=== PATIENT | female | born 1945 | race Caucasian/White ===

== ENCOUNTER 2016-07-21 08:07 | Outpatient (CLI) | payer MEDICARE | END 2016-07-21 08:08 | disposition home or self-care (01) | DX: Z13.820 Encounter for screening for osteoporosis (principal); M85.852 Other specified disorders of bone density and structure, left thigh ==

== ENCOUNTER 2016-07-21 08:09 | Outpatient (CLI) | payer MEDICARE | END 2016-07-21 08:10 | disposition home or self-care (01) | DX: Z12.31 Encounter for screening mammogram for malignant neoplasm of breast (principal); R92.2 Inconclusive mammogram; Z80.3 Family history of malignant neoplasm of breast ==

== ENCOUNTER 2016-08-09 12:31 | Outpatient (CLI) | payer MEDICARE | END 2016-08-09 12:32 | disposition home or self-care (01) | DX: R92.2 Inconclusive mammogram (principal); N60.01 Solitary cyst of right breast | CPT/HCPCS: 76642; G0206 ==

== ENCOUNTER 2019-02-23 11:06 | Emergency (ER) | payer MEDICARE ==
--- NOTE | 2019-02-23 12:04 | ED Physician Documentation ---
History of Present Illness - Stated complaint Stated Complaint: DIZZY - Chief complaint Chief Complaint: Neuro - History obtained from History obtained from: Patient - History of Present Illness Timing: Today - Additonal information Additional information: Patient is a 74-year-old female with history of vertigo presenting with recurrence of vertigo symptoms. Patient reports that began several hours ago with no inciting incident, trauma, or fall. Patient reports dizziness, nausea, and feeling off balance. All symptoms are worse with movement. Patient denies headache or other areas of pain, as well as any vision changes. Patient also denies areas of paresthesia or paralysis. Prior to the onset, patient had been at her normal state of health without complaint with exception of possible cold symptoms. No other improving or worsening factors noted. Review of Systems Constitutional: denies: Fever Eyes: denies: Loss of vision Cardiac: denies: Chest pain / pressure Respiratory: denies: Dyspnea GI: reports: Nausea. denies: Abdominal Pain, Vomiting, Diarrhea : denies: Dysuria Neurologic: denies: Focal weakness, Numbness, Headache PD PAST MEDICAL HISTORY - Past Medical History Past Medical History: Yes Cardiovascular: Hypertension, High cholesterol, Murmur Endocrine/Autoimmune: Other Psych: Anxiety Musculoskeletal: Other - Past Surgical History Past Surgical History: No - Present Medications Home Medications: Ambulatory Orders Medication Instructions Recorded Confirmed Lisinopril [Zestril] 5 mg PO DAILY 06/07/14 06/07/14 Lovastatin 0 mg PO DAILY 06/07/14 06/07/14 Hydrochlorothiazide 12.5 mg PO 02/23/19 Meclizine [Antivert] 25 mg PO Q6H PRN #10 tablet 02/23/19 Ondansetron Odt [Zofran] 4 mg TL Q6H PRN #10 tablet 02/23/19 - Allergies Allergies/Adverse Reactions: Allergies Allergy/AdvReac Type Severity Reaction Status Date / Time No Known Drug Allergies Allergy Verified 02/23/19 11:13 - Social History Does the pt smoke?: No Smoking Status: Never smoker Does the pt drink ETOH?: Yes Does the pt have substance abuse?: No - Immunizations Immunizations are current?: Yes - POLST Patient has POLST: Yes PD ED PE NORMAL - Vitals Vital signs reviewed: Yes - General General: Alert and oriented X 3, No acute distress, Well developed/nourished - HEENT HEENT: Atraumatic, PERRL (Gross visual acuity intact. No nystagmus.), EOMI, Moist mucous membranes, Pharynx benign - Neck Neck: Supple, no meningeal sign - Cardiac Cardiac: RRR. 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 Do not have high suspicion for intracranial injury, caustic injury, concussion, stroke or central cause of today's symptoms. Do not feel patient requires CT head imaging. Additionally, no other evidence of trauma, neurological deficit, systemic illness on exam and do not feel patient requires invasive testing at this time. Patient agrees. Patient received Zofran and meclizine and upon reevaluation much improved. Patient comfortable with discharge home and discussed use of these medications at home, as well as other supportive cares, return precautions, and appropriate follow- up. Departure - Departure Disposition: 01 Home, Self Care Clinical Impression: Vertigo Condition: Good Instructions: ED Vertigo Unspecified Follow-Up: Uzma Santos PA [Primary Care Provider] - Within 3 Days Prescriptions: Meclizine [Antivert] 25 mg PO Q6H PRN #10 tablet PRN Reason: Vertigo Ondansetron Odt [Zofran] 4 mg TL Q6H PRN #10 tablet PRN Reason: Nausea / Vomiting Comments: Please continue home medications as previously instructed. May use Zofran and meclizine as prescribed if needed for vertigo symptoms. Follow-up with primary care physician in next 2 to 3 days and return to ED sooner if experience worsening symptoms or have other concerns.
[2019-02-23] MEDS ORDERED: MECLIZINE 12.5 MG TABLET PO STA (12:12)
[2019-02-23] MEDS ORDERED: ONDANSETRON ODT 4 MG TABLET TL STA (12:12)
[2019-02-23 13:48] VITALS: BP 112/72
== END 2019-02-23 13:50 | disposition home or self-care (01) ==
LOC: ED 11:06
DX: R42 Dizziness and giddiness (principal); I10 Essential (primary) hypertension
CPT/HCPCS: 99282; 99283; A9270; Q0162